=== PATIENT | male | born 1995 ===

== ENCOUNTER 2022-03-09 09:14 | Emergency (ER) | payer SELFPAY ==
[2022-03-09] MEDS ORDERED: Ondansetron 4 MG/2 ML SDV IVPUSH ONE (09:25)
[2022-03-09 09:44] LABS: O2 DELIVERY DEVICE ROOM AIR
[2022-03-09 09:45] LABS: BASE EXCESS ARTERIAL 0 mmol/L ((-2)-(+3)); O2 SATURATION ARTERIAL 99 % (95-100); PCO2 ARTERIAL 22 mmHg (35-45); PO2 ARTERIAL 116 mmHg (70-100)
[2022-03-09 09:46] LABS: ALLEN TEST PERFORMED
[2022-03-09] MEDS ORDERED: Metoclopramide 10 MG/2 ML SDV IVPUSH ONE (09:50)
[2022-03-09] MEDS ORDERED: LORazepam 2 MG/ML SDV IVPUSH ONE ×2 (09:51→11:45)
[2022-03-09] MEDS ORDERED: Sodium Chloride 0.9% 1,000 ML IV ONE (10:12)
[2022-03-09 10:26] LABS: CHLORIDE,CL 106 mmol/L (98-107); SODIUM,NA 142 mmol/L (136-145)
[2022-03-09 10:28] LABS: ESTIMATED GFR 101 mL/min (>=60)
[2022-03-09] MEDS ORDERED: Potassium Chloride 20 MEQ in Premix Bag 1 BAG IV ONE (10:35)
[2022-03-09] MEDS ORDERED: Lidocaine 1% 30 ML SDV INJECT ONE (10:36)
[2022-03-09] MEDS ORDERED: NS with KCl 40mEq 1,000 ML IV SCH (10:45)
[2022-03-09] MEDS ORDERED: 50% Dextrose in Water 50 ML Syringe IVPUSH ONE (10:46)
[2022-03-09 10:52] LABS: CORONAVIRUS COVID-19 NAA NEGATIVE (NEGATIVE)
[2022-03-09] MEDS ORDERED: Promethazine 25 MG/ML SDV IM ONE (11:27)
[2022-03-09] MEDS ORDERED: Flumazenil 0.1 MG/ML 5 ML MDV IVPUSH PRN (11:45)
[2022-03-09 12:30] LABS: AMPHETAMINES,URINE NEGATIVE (NEGATIVE); BARBITURATES,URINE NEGATIVE (NEGATIVE); BENZODIAZEPINE,URINE POSITIVE (NEGATIVE); MDMA (ECSTASY), URINE NEGATIVE (NEGATIVE); METHADONE,URINE NEGATIVE (NEGATIVE); METHAMPHETAMINES,URINE NEGATIVE (NEGATIVE); OPIATES,URINE NEGATIVE (NEGATIVE); OXYCODONE,URINE POSITIVE (NEGATIVE); PHENCYCLIDINE,URINE NEGATIVE (NEGATIVE); TCA,URINE NEGATIVE (NEGATIVE)
[2022-03-09] MEDS ORDERED: cloNIDine 0.1 MG Tab PO ONE (12:36)
[2022-03-09] MEDS ORDERED: Dicyclomine 20 MG/2 ML SDV IM ONE (13:21)
[2022-03-09 14:51] LABS: ANION GAP 11.9 mEq/L (7-13)
== END 2022-03-09 16:11 | disposition home or self-care (01) ==
LOC: DL.ED 09:14
DX: R11.2 Nausea with vomiting, unspecified (principal); F11.23 Opioid dependence with withdrawal; Z79.4 Long term (current) use of insulin; Z20.822 Contact with and (suspected) exposure to COVID-19
CPT/HCPCS: 0240U; 36415; 36600; 80048; 80053; 80305; 80307; 81001; 82009; 82150; 82803; 82947; 83605; 83690; 83735; 84100; 84145; 84484; 85025; 87040; 93005; 96365; 96366; 96372; 96374; 96375; 96376; 99284; J0500; J2060; J2405; J2550; J2765; J3480; J7030